=== PATIENT | female | born 1955 | race Caucasian/White ===

== ENCOUNTER 2017-10-20 16:12 | Emergency (ER) | payer MEDICARE, MEDICAID ==
--- NOTE | 2017-10-20 17:18 | RAD ---
INDICATION: Recent cardiac catheterization. Right groin pain COMPARISON: None TECHNIQUE: Doppler interrogation of the right inguinal region was performed. FINDINGS: There is no evidence of pseudoaneurysm. The common femoral artery and vein are both patent and the waveforms appear normal. There is a small hypoechoic focus in the inguinal region at the site of pain and tenderness which is probably a small hematoma. This measures 1.0 x 0.6 x 1.0 cm. IMPRESSION: NO EVIDENCE OF PSEUDOANEURYSM.
--- NOTE | 2017-10-20 18:01 | ED ---
Lower Extremity - HPI Summary HPI Summary: Patient presents to the ED with CC of R groin pain following an angiogram "around milo time" and states she has not been able to walk since that time. She is a resident of [place] and walks with a walker at baseline. Denies other pain or symptoms She denies any discoloration, numbness or tingling. The pain is discretely located over the R groin and does not radiate. She is currently on xarelto. Denies straining the area. While she states she has been unable to walk since the angiogram, she states she has been getting around via her walker (which is at her baseline.) Denies fevers, sweats and chills. - History of Current Complaint Chief Complaint: EDExtremityLower Stated Complaint: RT LEG PAIN Time Seen by Provider: 10/20/17 16:21 Hx Obtained From: Patient Onset of Pain: Immediate Onset/Duration: Weeks Severity Initially: Mild Severity Currently: Mild Pain Intensity: 8 Pain Scale Used: 0-10 Numeric Timing: Constant Location: Is Discrete @ - right groin Associated Signs And Symptoms: Negative: Swelling, Redness, Bruising, Weakness, Dizziness, Syncope, Abdominal Pain, Knee Pain Aggravating Factor(s): Standing, Ambulation Alleviating Factor(s): Rest Able to Bear Weight: No - Risk Factors Gout Risk Factors: Negative DVT Risk Factors: Negative Septic Arthritis Risk Factor: Negative - Allergies/Home Medications Allergies/Adverse Reactions: Allergies Allergy/AdvReac Type Severity Reaction Status Date / Time Baclofen Allergy Intermediate Headache Verified 09/21/17 14:02 Gabapentin [From Neurontin] Allergy Intermediate Hives Verified 09/21/17 14:02 Pregabalin [From Lyrica] Allergy Intermediate Hives Verified 09/21/17 14:02 Tramadol [From Ultram] Allergy Intermediate Hives Verified 09/21/17 14:02 Tapentadol [From Nucynta] AdvReac Diaphoresis Verified 09/21/17 14:02 PMH/Surg Hx/FS Hx/Imm Hx Previously Healthy: Yes Endocrine/Hematology History: Denies: Hx Diabetes Cardiovascular History: Denies: Hx Pacemaker/ICD, Other Cardiovascular Problems/Disorders Respiratory History: Denies: Other Respiratory Problems/Disorders GI History: Denies: Other GI Disorders Musculoskeletal History: Reports: Hx Back Problems, Other Musculoskeletal History - Chronic low back pain. Sensory History: Denies: Hx Contacts or Glasses, Hx Hearing Aid Opthamlomology History: Denies: Hx Contacts or Glasses Neurological History: Reports: Other Neuro Impairments/Disorders - CHRONIC LUMBAR PAIN Psychiatric History: Reports: Hx Depression - ON MEDS Denies: Hx Panic Disorder - Surgical History Surgery Procedure, Year, and Place: Laser Disc Surgery- LAMINECTOMY 1999;. Tubal Ligation;. Appendectomy; Hx Anesthesia Reactions: No - Immunization History Hx Pertussis Vaccination: No Immunizations Up to Date: Unable to Obtain/Confirm Infectious Disease History: No Infectious Disease History: Reports: History Other Infectious Disease - Encephalitis Denies: Traveled Outside the [place] in Last 30 Days - Social History Occupation: Unemployed Lives: [facility] Alcohol Use: None Hx Substance Use: No Substance Use Type: Reports: None Substance Use Comment - Amount & Last Used: fentanyl patch and clonazepam Smoking Status (MU): Never Smoked Tobacco Type: Cigarettes Review of Systems Constitutional: Negative Negative: Fever, Chills, Fatigue Eyes: Negative Cardiovascular: Negative Negative: Palpitations, Chest Pain Respiratory: Negative Negative: Shortness Of Breath, Cough Negative: Abdominal Pain, Vomiting, Diarrhea Positive: no symptoms reported, see HPI Positive: Arthralgia - right groin pain Skin: Negative Negative: Bruising Negative: Headache, Weakness, Paresthesia All Other Systems Reviewed And Are Negative: Yes Physical Exam Triage Information Reviewed: Yes Vital Signs On Initial Exam: Initial Vitals Temp Pulse Resp BP Pulse Ox 98 F 72 18 138/74 97 10/20/17 16:19 10/20/17 16:19 10/20/17 16:19 10/20/17 16:19 10/20/17 16:19 Vital Signs Reviewed: Yes Appearance: Positive: Well-Appearing, Well-Nourished Skin: Positive: Warm, Skin Color Reflects Adequate Perfusion Head/Face: Positive: Normal Head/Face Inspection Eyes: Positive: EOMI, KIMBER[place], Conjunctiva Clear Neck: Positive: Supple, Nontender Respiratory/Lung Sounds: Positive: Clear to Auscultation, Breath Sounds Present Cardiovascular: Positive: RRR, Pulses are Symmetrical in both Upper and Lower Extremities Musculoskeletal: Positive: Pain @ - right groin pain without discoloration Neurological: Positive: Speech Normal Psychiatric: Positive: Normal, Affect/Mood Appropriate - [place] Coma Scale Coma Scale Total: 15 Diagnostics - Vital Signs Vital Signs Temp Pulse Resp BP Pulse Ox 01/10/18 16:19 98 F 72 18 138/74 97 - Laboratory Lab Statement: Any lab studies that have been ordered have been reviewed, and results considered in the medical decision making process. Lower Extremity Course/Dx - Course Course Of Treatment: Patient presents to the ED with CC of R groin pain following an angiogram "around milo time" and states she has not been able to walk since that time. She is a resident of [place] and walks with a walker at baseline. Denies other pain or symptoms She denies any discoloration, numbness or tingling. The pain is discretely located over the R groin and does not radiate. She is currently on xarelto. Denies straining the area. While she states she has been unable to walk since the angiogram, she states she has been getting around via her walker (which is at her baseline.) Denies fevers, sweats and chills. During the course of treatment, VL pseudoaneurysm right groin obtained. FINDINGS: There is no evidence of pseudoaneurysm. The common femoral artery and vein are. both patent and the waveforms appear normal. There is a small hypoechoic focus in the. inguinal region at the site of pain and tenderness which is probably a small hematoma. This measures 1.0 x 0.6 x 1.0 cm. IMPRESSION: NO EVIDENCE OF PSEUDOANEURYSM. Patient is encouraged warmth to the area and to follow up with her PCP in 3 days. She agrees to this and [facility] called to transport back to [place]. She is not given or offered pain control in the ED d/t her chronic pain controlled with Fentanyl patch. - Diagnoses Differential Diagnosis/HQI/PQRI: Positive: DVT Provider Diagnoses: Hematoma Discharge - Discharge Plan Condition: Stable Disposition: HOME Patient Education Materials: Groin Pain (ED), Hematoma (ED) Referrals: Milo Pyle MD [Primary Care Provider] - Additional Instructions: As discussed, heat to the area will aid in healing and improve pain control Continue all your at home medications as prescribed If you develop any worsening symptoms, return to the ED immediately. I recommend you follow up with your PCP in 3 days.
[2017-10-20 18:07] VITALS: BP 132/74
== END 2017-10-20 18:06 | disposition home or self-care (01) ==
LOC: ED 16:12
DX: S30.1XXA Contusion of abdominal wall, initial encounter (principal); Z98.61 Coronary angioplasty status; R10.30 Lower abdominal pain, unspecified; X58.XXXA Exposure to other specified factors, initial encounter; Y92.9 Unspecified place or not applicable
CPT/HCPCS: 99283

== ENCOUNTER 2018-01-21 10:52 | Emergency (ER) | payer MEDICARE, MEDICAID ==
--- NOTE | 2018-01-21 12:44 | RAD ---
INDICATION: Left leg pain. COMPARISON: There are no prior studies available for comparison. TECHNIQUE: Multiple real-time, color flow and Doppler tracings of the left lower extremity were obtained. FINDINGS: The common femoral and profunda femoral veins demonstrate normal compressibility, augmentation with compression and phasic response with respiration. There is increased echogenicity throughout the femoral vein and within the popliteal vein which appears slightly small in caliber although are compressible most consistent with deep venous thrombosis possibly chronic. There is phasic flow on Doppler imaging. The posterior tibial and peroneal veins demonstrate normal compressibility and augmentation with compression. IMPRESSION: NONOCCLUSIVE DEEP VENOUS THROMBOSIS WITHIN THE FEMORAL AND POPLITEAL VEINS POSSIBLY CHRONIC.
[2018-01-21 13:16] LABS: ABS Basophils 0.1 10^3/ul (0-0.2); ABS Eosinophils 0 10^3/ul (0-0.6); ABS Lymphocytes 0.9 10^3/ul (1.0-4.8); ABS Monocytes 0.2 10^3/ul (0-0.8); ABS Neutrophils 7.1 10^3/ul (1.5-7.7); ABS Nucleated RBC 0 10^3/ul; Eosinophil % 0.1 % (0-6); Hematocrit 36 % (35-47); Hemoglobin 11.9 g/dl (12.0-16.0); Lymphocyte % 10.4 % (25-47); Mean Corpuscular HGB Conc 33 g/dl (31-36); Mean Corpuscular Hemoglobin 30 pg (27-31); Mean Corpuscular Volume 90 fL (80-97); Nucleated Red Blood Cells % 0.1; Platelet Count 297 10^3/ul (150-450); Red Blood Count 4.02 10^6/ul (4.0-5.4); Red Cell Distribution Width 14 % (10.5-15); White Blood Count 8.3 10^3/ul (3.5-10.8)
[2018-01-21 13:25] LABS: INR 0.85 (0.77-1.02)
--- NOTE | 2018-01-21 13:52 | ED ---
Lower Extremity - HPI Summary HPI Summary: 62-year-old female presents with increased swelling in her left leg. She states that she had this before she had a DVT. She states she is currently on Xarelto which was decreased 3 weeks ago to 10 mg. Since she said that decreased her dosage has noticed intermittent swelling. She denies any injury. She denies any fever or spreading redness. She states her pain is in left ankle and foot with walking. She denies any numbness or tingling. She denies any chest pain or shortness breath. She denies any recent travel. She denies any surgeries. She is unsure why she gets blood clots. She has been on xarleto for over 6 months. - History of Current Complaint Chief Complaint: EDExtremityLower Stated Complaint: LT LEG SWELLING Time Seen by Provider: 01/21/18 12:56 Pain Intensity: 8 - Allergies/Home Medications Allergies/Adverse Reactions: Allergies Allergy/AdvReac Type Severity Reaction Status Date / Time gabapentin Allergy Intermediate Hives Verified 01/21/18 10:59 pregabalin [From Lyrica] Allergy Intermediate Hives Verified 01/21/18 10:59 tapentadol [From Nucynta] Allergy Intermediate Diaphoresis Verified 01/21/18 10: 59 tramadol Allergy Intermediate Hives Verified 01/21/18 10:59 baclofen AdvReac Intermediate Headache Verified 01/21/18 10:59 PMH/Surg Hx/FS Hx/Imm Hx Endocrine/Hematology History: Reports: Hx Anticoagulant Therapy Denies: Hx Diabetes Cardiovascular History: Denies: Hx Pacemaker/ICD, Other Cardiovascular Problems/Disorders Respiratory History: Denies: Other Respiratory Problems/Disorders GI History: Denies: Other GI Disorders Musculoskeletal History: Reports: Hx Back Problems, Other Musculoskeletal History - Chronic low back pain. Sensory History: Denies: Hx Contacts or Glasses, Hx Hearing Aid Opthamlomology History: Denies: Hx Contacts or Glasses Neurological History: Reports: Other Neuro Impairments/Disorders - CHRONIC LUMBAR PAIN Psychiatric History: Reports: Hx Depression - ON MEDS Denies: Hx Panic Disorder - Surgical History Surgery Procedure, Year, and Place: Laser Disc Surgery- LAMINECTOMY 1999;. Tubal Ligation;. Appendectomy; Hx Anesthesia Reactions: No Infectious Disease History: No Infectious Disease History: Reports: History Other Infectious Disease - Encephalitis Denies: Traveled Outside the [place] in Last 30 Days - Family History Known Family History: Negative: Blood Disorder - Social History Alcohol Use: None Hx Substance Use: No Substance Use Type: Reports: None Substance Use Comment - Amount & Last Used: fentanyl patch and clonazepam Smoking Status (MU): Former Smoker Type: Cigarettes Review of Systems Negative: Fever Negative: Chest Pain Negative: Shortness Of Breath Positive: Edema - left leg All Other Systems Reviewed And Are Negative: Yes Physical Exam Triage Information Reviewed: Yes Vital Signs On Initial Exam: Initial Vitals Temp Pulse Resp BP Pulse Ox 98.3 F 75 16 129/73 96 01/21/18 11:01 01/21/18 11:01 01/21/18 11:01 01/21/18 11:01 01/21/18 11:01 Vital Signs Reviewed: Yes Appearance: Positive: Well-Appearing Skin: Positive: Warm, Dry Head/Face: Positive: Normal Head/Face Inspection Eyes: Positive: Normal, Conjunctiva Clear Respiratory/Lung Sounds: Positive: Clear to Auscultation, Breath Sounds Present Cardiovascular: Positive: Normal, RRR Musculoskeletal: Positive: Strength/ROM Intact - Left leg, Edema Left - foot and ankle, Other - Nontender left lower leg, good pulses, cap refill less than 2 seconds,. Negative: Fox Sign Left Neurological: Positive: Normal Psychiatric: Positive: Normal Diagnostics - Vital Signs Vital Signs Temp Pulse Resp BP Pulse Ox 01/21/18 11:01 98.3 F 75 16 129/73 96 - Laboratory Lab Results: Lab Results 01/21/18 01/21/18 01/21/18 Range/Units 13:03 13:03 13:03 WBC 8.3 (3.5-10.8) 10^3/ul RBC 4.02 (4.0-5.4) 10^6/ul Hgb 11.9 L (12.0-16.0) g/dl Hct 36 (35-47) % MCV 90 (80-97) fL MCH 30 (27-31) pg MCHC 33 (31-36) g/dl RDW 14 (10.5-15) % Plt Count 297 (150-450) 10^3/ul MPV 8.0 (7.4-10.4) um3 Neut % (Auto) 86.4 H (38-83) % Lymph % (Auto) 10.4 L (25-47) % [place] % (Auto) 2.4 (0-7) % Eos % (Auto) 0.1 (0-6) % Baso % (Auto) 0.7 (0-2) % Absolute Neuts (auto) 7.1 (1.5-7.7) 10^3/ul Absolute Lymphs (auto) 0.9 L (1.0-4.8) 10^3/ul Absolute Monos (auto) 0.2 (0-0.8) 10^3/ul Absolute Eos (auto) 0 (0-0.6) 10^3/ul Absolute Basos (auto) 0.1 (0-0.2) 10^3/ul Absolute Nucleated RBC 0 10^3/ul Nucleated RBC % 0.1 INR (Anticoag Therapy) 0.85 (0.77-1.02) APTT 29.9 (26.0-36.3) seconds Sodium 141 (139-145) mmol/L Potassium 4.1 (3.5-5.0) mmol/L Chloride 107 (101-111) mmol/L Carbon Dioxide 27 (22-32) mmol/L Anion Gap 7 (2-11) mmol/L BUN 8 (6-24) mg/dL Creatinine 0.75 (0.51-0.95) mg/dL Est GFR ( Amer) 100.4 (>60) Est GFR (Non-Af Amer) 78.0 (>60) BUN/Creatinine Ratio 10.7 (8-20) Glucose 124 H (70-100) mg/dL Calcium 8.6 (8.6-10.3) mg/dL Total Bilirubin 0.20 (0.2-1.0) mg/dL AST 24 (13-39) U/L ALT 17 (7-52) U/L Alkaline Phosphatase 109 H (34-104) U/L Total Protein 6.2 L (6.4-8.9) g/dL Albumin 3.8 (3.2-5.2) g/dL Globulin 2.4 (2-4) g/dL Albumin/Globulin Ratio 1.6 (1-3) Result Diagrams: 01/21/18 13:03 01/21/18 13:03 Lab Statement: Any lab studies that have been ordered have been reviewed, and results considered in the medical decision making process. - Ultrasound No standard instances Ultrasound Interpretation: Positive (See Comments) - IMPRESSION: NONOCCLUSIVE DEEP VENOUS THROMBOSIS WITHIN THE FEMORAL AND POPLITEAL VEINS POSSIBLY CHRONIC. Ultrasound Interpretation Completed By: Radiologist Lower Extremity Course/Dx - Course Course Of Treatment: 62-year-old female presents with increased swelling in her left leg. She states that she had this before she had a DVT. She states she is currently on Xarelto which was decreased 3 weeks ago to 10 mg. Since she said that decreased her dosage has noticed intermittent swelling. She denies any injury. She denies any fever or spreading redness. She states her pain is in left ankle and foot with walking. She denies any numbness or tingling. She denies any chest pain or shortness breath. She denies any recent travel. She denies any surgeries. She is unsure why she gets blood clots. She has been on xarleto for over 6 months. On exam has mild edema to left foot and ankle. Full range of motion of the ankle. Neurovascular intact. Ultrasound shows chronic DVT. Will increase dose of Xarelto should 20 mg as is therapeutic. We' ll have follow-up with primary for continued care. Patient understands and agrees plan - Diagnoses Differential Diagnosis/HQI/PQRI: Positive: DVT, Fracture (Closed), Sprain Provider Diagnoses: Deep venous thrombosis Discharge - Sign-Out/Discharge Documenting (check all that apply): Discharge - Discharge Plan Condition: Good Disposition: HOME Prescriptions: Rivaroxaban TAB(*) [Xarelto 20 mg] 20 mg PO DAILY #30 tab Patient Education Materials: Deep Vein Thrombosis (ED) Referrals: Milo Pyle MD [Primary Care Provider] - Additional Instructions: It appears your DVT is chronic Take xarelto 20mg once a day, will increase the dosage at this time Take with food Avoid Aspirin or ibuprofen, use Tylenol for pain Wear compression socks Elevate legs Follow up with primary care physician for continued care Return to ED if develop any chest pain or SOB or any new or worsening symptoms - Billing Disposition and Condition Condition: GOOD Disposition: HOME
[2018-01-21 14:16] VITALS: BP 143/68
== END 2018-01-21 14:16 | disposition home or self-care (01) ==
LOC: ED 10:52
DX: I82.512 Chronic embolism and thrombosis of left femoral vein (principal); I82.532 Chronic embolism and thrombosis of left popliteal vein; Z79.01 Long term (current) use of anticoagulants; Z87.891 Personal history of nicotine dependence
CPT/HCPCS: 36415; 80053; 85025; 85610; 85730; 99282

== ENCOUNTER 2019-04-23 08:36 | Emergency (ER) | payer MEDICARE, MEDICAID ==
[2019-04-23] MEDS ORDERED: Albuterol 2.5 MG/3 ML NEB.SOL* (0.083%) INH ONE (09:46)
[2019-04-23] MEDS ORDERED: NS 0.9% 1000 ML** 1,000 ML IV ONE (09:47)
[2019-04-23 10:22] LABS: ABS Lymphocytes 0.7 10^3/ul (1.0-4.8); ABS Monocytes 0.3 10^3/ul (0-0.8); ABS Neutrophils 5.2 10^3/ul (1.5-7.7); Eosinophil % 0.1 %; Hematocrit 37 % (35-47); Hemoglobin 12.3 g/dL (12.0-16.0); Mean Corpuscular HGB Conc 34 g/dL (31-36); Mean Corpuscular Hemoglobin 31 pg (27-31); Mean Corpuscular Volume 91 fL (80-97); Mean Platelet Volume 7.8 fL (7.4-10.4); Platelet Count 224 10^3/uL (150-450); Red Blood Count 4.05 10^6 /uL (3.70-4.87); Red Cell Distribution Width 13 % (10-15); White Blood Count 6.2 10^3/uL (3.5-10.8)
[2019-04-23 10:39] LABS: Albumin/Globulin Ratio 1.5 (1-3); BUN/Creatinine Ratio 10.1 (8-20); Calcium 8.5 mg/dL (8.6-10.3); EGFR African American 88.7 (>60); EGFR Non-African American 73.3 (>60); Globulin 2.6 g/dL (2-4); Potassium 3.9 mmol/L (3.5-5.0); Total Bilirubin 0.3 mg/dL (0.2-1.0); Total Protein 6.6 g/dL (6.4-8.9)
[2019-04-23] MEDS ORDERED: Acetaminophen TAB* 325 MG PO ONE (11:06)
--- NOTE | 2019-04-23 11:32 | ED ---
HPI Cardiac - HPI Summary HPI Summary: Coughing past few days - wiped out- reduced fluid intake d/t nausea/fatigue/GARCIAS. Cough is making chest hurt. Fever (low grade). Sinus congestion w/ PND. Denies vomiting, diarrhea, chest pain, swelling. Lives in [place] (asst'd living) and has been around many people with bronchitis. Has not tried anything yet for relief other than tea this morning which helped break up sputum. - History of Current Complaint Chief Complaint: EDUpperRespComplaint Stated Complaint: COUGHING/ILLNESS PER EMS Time Seen by Provider: 04/23/19 08:44 Hx Obtained From: Patient Pain Intensity: 5 - Allergy/Home Medications Allergies/Adverse Reactions: Allergies Allergy/AdvReac Type Severity Reaction Status Date / Time gabapentin Allergy Intermediate Hives Verified 04/23/19 08:56 pregabalin [From Lyrica] Allergy Intermediate Hives Verified 04/23/19 08:56 tapentadol [From Nucynta] Allergy Intermediate Diaphoresis Verified 04/23/19 08: 56 tramadol Allergy Intermediate Hives Verified 04/23/19 08:56 baclofen AdvReac Intermediate Headache Verified 04/23/19 08:56 PMH/Surg Hx/FS Hx/Imm Hx Previously Healthy: Yes Endocrine/Hematology History: Reports: Hx Anticoagulant Therapy Denies: Hx Diabetes Cardiovascular History: Denies: Hx Hypertension, Hx Pacemaker/ICD, Other Cardiovascular Problems/ Disorders Respiratory History: Denies: Hx Asthma, Hx Chronic Obstructive Pulmonary Disease (COPD), Hx Pneumonia, Other Respiratory Problems/Disorders GI History: Reports: Hx Gastroesophageal Reflux Disease - TAKES ZANTEC PRN Denies: Other GI Disorders History: Denies: Hx Renal Disease Musculoskeletal History: Reports: Hx Back Problems, Other Musculoskeletal History - Chronic low back pain. L4-5 Sensory History: Denies: Hx Contacts or Glasses, Hx Hearing Aid Opthamlomology History: Denies: Hx Contacts or Glasses Neurological History: Reports: Other Neuro Impairments/Disorders - CHRONIC LUMBAR PAIN/ BRAIN ANEURYSM - WATCHED W/ MRAs [id number] Denies: Hx Seizures - AUTOIMMUNE ENCEPHALITIS 2017 ON ANTI-SEIZURE MEDICATION Psychiatric History: Reports: Hx Anxiety, Hx Depression - ON MEDS Denies: Hx Panic Disorder - Surgical History Surgery Procedure, Year, and Place: APPENDIX. LASER DISC FOR BACK. TUBAL LIGATION Hx Anesthesia Reactions: No Infectious Disease History: No Infectious Disease History: Reports: History Other Infectious Disease - Encephalitis Denies: Traveled Outside the [place] in Last 30 Days - Family History Known Family History: Negative: Blood Disorder - Social History Occupation: Retired Lives: Assisted Living Alcohol Use: None Hx Substance Use: No Substance Use Type: Reports: None Substance Use Comment - Amount & Last Used: fentanyl patch and clonazepam Hx Tobacco Use: Yes - not currently smoking Smoking Status (MU): Former Smoker Type: Cigarettes Have You Smoked in the Last Year: No Review of Systems Positive: Fever, Fatigue. Negative: Chills Eyes: Negative Positive: Sore Throat, Nasal Discharge. Negative: Epistaxis, Dental Pain, Ear Ache Cardiovascular: Negative Positive: Cough. Negative: Shortness Of Breath Gastrointestinal: Negative Positive: no symptoms reported Musculoskeletal: Negative Skin: Negative Positive: Headache. Negative: Weakness, Paresthesia, Numbness, Syncope, Slurred Speech Psychological: Normal All Other Systems Reviewed And Are Negative: Yes Physical Exam Vital Signs On Initial Exam: Initial Vitals Temp Pulse Resp BP Pulse Ox 100.4 F 82 22 151/83 95 04/23/19 08:52 04/23/19 08:52 04/23/19 08:52 04/23/19 08:52 04/23/19 08:52 Appearance: Positive: No Pain Distress, Ill-Appearing, Thin Skin: Positive: Warm, Skin Color Reflects Adequate Perfusion, Dry Head/Face: Positive: Normal Head/Face Inspection Eyes: Positive: Normal, EOMI, Conjunctiva Clear ENT: Positive: Hearing grossly normal, Pharynx normal - cobblestoning, Nasal congestion, TMs normal, Uvula midline. Negative: Nasal drainage, Tonsillar swelling, Tonsillar exudate, Trismus, Muffled voice, Hoarse voice Neck: Positive: Supple, Nontender, No Lymphadenopathy Respiratory/Lung Sounds: Positive: Clear to Auscultation, Breath Sounds Present , Other - coughs easily w/ deep breathes. Negative: Rales, Rhonchi, Wheezes Cardiovascular: Positive: Normal, Pulses are Symmetrical in both Upper and Lower Extremities, S1, S2. Negative: Murmur, Rub, Leg Edema Left, Leg Edema Right Abdomen Description: Positive: Nontender, Soft Bowel Sounds: Positive: Present Musculoskeletal: Positive: Normal, Strength/ROM Intact Neurological: Positive: Normal, Sensory/Motor Intact, Alert, Oriented to Person Place, Time, CN Intact II-III Psychiatric: Positive: Anxious - [place] Coma Scale Best Eye Response: 4 - Spontaneous Best Motor Response: 6 - Obeys Commands Best Verbal Response: 5 - Oriented Coma Scale Total: 15 Diagnostics - Vital Signs Vital Signs Temp Pulse Resp BP Pulse Ox 04/23/19 10:10 74 16 96 04/23/19 10:07 77 18 177/75 95 04/23/19 10:00 73 18 94 04/23/19 09:41 80 16 177/75 95 04/23/19 09:03 76 13 93 04/23/19 08:52 100.4 F 82 27 151/83 95 - Laboratory Lab Results: Lab Results 04/23/19 04/23/19 04/23/19 Range/Units 09:56 09:56 09:56 WBC 6.2 (3.5-10.8) 10^3/uL RBC 4.05 (3.70-4.87) 10^6 /uL Hgb 12.3 (12.0-16.0) g/dL Hct 37 (35-47) % MCV 91 (80-97) fL MCH 31 (27-31) pg MCHC 34 (31-36) g/dL RDW 13 (10-15) % Plt Count 224 (150-450) 10^3/uL MPV 7.8 (7.4-10.4) fL Neut % (Auto) 83.1 % Lymph % (Auto) 11.0 % [place] % (Auto) 5.5 % Eos % (Auto) 0.1 % Baso % (Auto) 0.3 % Absolute Neuts (auto) 5.2 (1.5-7.7) 10^3/ul Absolute Lymphs (auto) 0.7 L (1.0-4.8) 10^3/ul Absolute Monos (auto) 0.3 (0-0.8) 10^3/ul Absolute Eos (auto) 0.0 (0-0.6) 10^3/ul Absolute Basos (auto) 0.0 (0-0.2) 10^3/ul Absolute Nucleated RBC 0.0 10^3/ul Nucleated RBC % 0.0 Sodium 136 (135-145) mmol/L Potassium 3.9 (3.5-5.0) mmol/L Chloride 104 (101-111) mmol/L Carbon Dioxide 25 (22-32) mmol/L Anion Gap 7 (2-11) mmol/L BUN 8 (6-24) mg/dL Creatinine 0.79 (0.51-0.95) mg/dL Est GFR ( Amer) 88.7 (>60) Est GFR (Non-Af Amer) 73.3 (>60) BUN/Creatinine Ratio 10.1 (8-20) Glucose 108 H (70-100) mg/dL Lactic Acid 0.7 (0.5-2.0) mmol/L Calcium 8.5 L (8.6-10.3) mg/dL Magnesium 2.0 (1.9-2.7) mg/dL Total Bilirubin 0.30 (0.2-1.0) mg/dL AST 22 (13-39) U/L ALT 15 (7-52) U/L Alkaline Phosphatase 99 (34-104) U/L C-Reactive Protein 5.00 (<8.01) mg/L Total Protein 6.6 (6.4-8.9) g/dL Albumin 4.0 (3.2-5.2) g/dL Globulin 2.6 (2-4) g/dL Albumin/Globulin Ratio 1.5 (1-3) Result Diagrams: 04/23/19 09:56 04/23/19 09:56 Lab Statement: Any lab studies that have been ordered have been reviewed, and results considered in the medical decision making process. Re-Evaluation - Re-Evaluation First Eval Change: Improved - GARCIAS and energy improved s/p IVF; cough/chest tightness improved s/p duoneb Disposition - Course Course Of Treatment: CXR: no acute findings - Diagnoses Provider Diagnoses: Bronchitis Discharge - Sign-Out/Discharge Documenting (check all that apply): Patient Departure Patient Received Moderate/Deep Sedation with Procedure: No - Discharge Plan Condition: Stable Disposition: HOME Prescriptions: Albuterol HFA INHALER* [Ventolin HFA Inhaler*] 2 puff INH Q6H PRN #1 mdi PRN Reason: Cough Patient Education Materials: Acute Bronchitis (ED) Referrals: Milo Pyle MD [Primary Care Provider] - Additional Instructions: Albuterol Inhaler: 2 puffs every 6 hours as needed for coughing Rinse mouth after use Once cough and chest tightness resolve, you may discontinue use of inhaler You may also try the following for relief of symptoms: Nasal wash (netti pot or saline spray) & salt water throat gargles 2 x day Drink you body weight in ounces of water every day Sleep 8+ hours per night Avoid Dairy and sugar Hot herbal/decaf tea with lemon & honey Chicken broth (preferably organic, free range chicken) Try warm shower to loosen cough Use cough drops/throat lozenges Try a facial steam with or without eucalyptus essential oil or Oswaldo's Vapor rub for congestion Avoid smoke, candles, perfumes, colognes, scented soaps/detergents , air fresheners and cleaning chemicals as these can cause airway irritation and trigger coughing Start Vitamin D3 5,000iu and Vitamin C 1,000mg every day during illness Follow-up with PCP this week - call Wednesday to schedule an appointment *If worse, return to ED - Billing Disposition and Condition Condition: STABLE Disposition: Home
[2019-04-23] MEDS ORDERED: Albuterol HFA INHALER* 8 gm MDI INH PRN (11:35)
[2019-04-23 15:04] VITALS: BP 134/76
== END 2019-04-23 15:01 | disposition home or self-care (01) ==
LOC: ED 08:36
DX: J40 Bronchitis, not specified as acute or chronic (principal); K21.9 Gastro-esophageal reflux disease without esophagitis; G89.29 Other chronic pain; M54.5 Low back pain; I67.1 Cerebral aneurysm, nonruptured; Z79.01 Long term (current) use of anticoagulants; F41.9 Anxiety disorder, unspecified; F32.9 Major depressive disorder, single episode, unspecified; Z88.5 Allergy status to narcotic agent; Z88.8 Allergy status to other drugs, medicaments and biological substances; Z87.891 Personal history of nicotine dependence
CPT/HCPCS: 36415; 71046; 80053; 83605; 83735; 85025; 86140; 87040; 96360; 96361; 99283; A9270-GY

== ENCOUNTER 2020-08-29 11:36 | Inpatient (IN) ==
[~2020-08-29 11:36] MED LIST: Buffered Lidocaine 1% SYRIN 1 ml INTRADERM ONE; Lactated Ringers 1000 ml BAG 1,000 ML IV SCH
[2020-08-29] MEDS ORDERED: ceFAZolin 2 GM PREMIX 2 GM/50 ML BAG ONE (12:23)
[2020-08-29] MEDS ORDERED: Buffered Lidocaine 1% SYRIN 1 ml INTRADERM ONE (12:23)
[2020-08-29 13:14] LABS: INR 1.03 (0.82-1.09)
[2020-08-29] MEDS ORDERED: Dexmedetomidine 200 mcg/2 ml 2 ml VIAL (200 mcg) ONE (13:54)
[2020-08-29] MEDS ORDERED: Midazolam 2 mg/2 ml VIAL 1 mg/ml 2 ml VIAL (2 mg) ONE (13:54)
[2020-08-29] MEDS ORDERED: Lidocaine 2% PF 5 ML VIAL ONE (13:54)
[2020-08-29] MEDS ORDERED: ROPIVACAINE 5 MG/ML 30 ML BTL (0.5%) ONE (13:54)
[2020-08-29] MEDS ORDERED: Bupivacaine 0.5% SDV PF 30ML VIAL ONE (14:24)
[2020-08-29] MEDS ORDERED: Propofol 10 mg/ml 100 ML BTL 100 ML ONE (14:26)
[2020-08-29] MEDS ORDERED: fentaNYL 100 mcg/2 ml 50 MCG/ML VIAL ONE (14:38)
[2020-08-29] MEDS ORDERED: Morphine 2 MG/ML SYRINGE IV PRN (15:43)
[2020-08-29] MEDS ORDERED: Ondansetron 4 mg VIAL 2 MG/ML 2 ml VIAL IV PRN ×2 (15:43→17:53)
[2020-08-29] MEDS ORDERED: diPHENhydraMINE 25 mg TAB PO PRN (15:43)
[2020-08-29] MEDS ORDERED: Magnesium Hydroxide LIQ 30 ML UDC PO PRN (15:43)
[2020-08-29] MEDS ORDERED: Lactulose 30 ml UDC PO PRN (15:43)
[2020-08-29] MEDS ORDERED: diPHENhydraMINE IV 50 MG/ML 1 ml VIAL (BENADRYL) IV PRN (15:43)
[2020-08-29] MEDS ORDERED: Ondansetron ODT 4 mg TAB 4 MG TAB PO PRN (15:43)
[2020-08-29] MEDS ORDERED: Ondansetron 4 mg VIAL 2 MG/ML 2 ml VIAL ONE (17:05)
[2020-08-29] MEDS ORDERED: EPHEDrine (Pressors) 50 MG/ML VIAL ONE (17:10)
[2020-08-29] MEDS ORDERED: Naloxone 0.4 mg VIAL 0.4 mg/ml 1 ml VIAL IV PRN (17:53)
[2020-08-29] MEDS ORDERED: fentaNYL 100 mcg/2 ml 50 MCG/ML VIAL IV PRN (17:53)
[2020-08-29] MEDS ORDERED: HYDROmorphone 1 MG/1 ML SYRINGE IV PRN (17:53)
[2020-08-29] MEDS: Lactated Ringers 1000 ml BAG 1,000 ML IV SCH (18:26)
[2020-08-29] MEDS ORDERED: fentaNYL PATCH 75 MCG/HR 1 PATCH TRANSDERM SCH ×2 (20:00→23:30)
[2020-08-29] MEDS: Magnesium Hydroxide LIQ 30 ML UDC PO SCH (20:14)
[2020-08-29] MEDS: ceFAZolin 1 GM ADVAN 1 GM in NS 0.9% 50 ML 50 ML IVPB SCH (23:45)
[2020-08-29] MEDS: oxyCODONE/Acetamin 5/325 mg TAB PO PRN (23:45)
[2020-08-30] MEDS: Lactated Ringers 1000 ml BAG 1,000 ML IV SCH (04:49)
[2020-08-30] MEDS: ceFAZolin 1 GM ADVAN 1 GM in NS 0.9% 50 ML 50 ML IVPB SCH ×2 (06:15→13:02)
[2020-08-30 06:18] LABS: Hematocrit 29 % (35-47); Hemoglobin 9.6 g/dL (12.0-16.0); Mean Platelet Volume 8.5 fL (7.4-10.4); Platelet Count 222 10^3/uL (150-450)
[2020-08-30 06:36] LABS: BUN/Creatinine Ratio 11.4 (8-20); Calcium 8.2 mg/dL (8.6-10.3); EGFR African American 101.6 (>60); Potassium 3.9 mmol/L (3.5-5.0)
[2020-08-30] MEDS ORDERED: fentaNYL Patch Check Q Shift NOTE FOLLOW UP SCH (07:00)
[2020-08-30] MEDS ORDERED: Vitamin THERAPEUTIC TAB PO SCH (09:00)
[2020-08-30] MEDS: oxyCODONE/Acetamin 5/325 mg TAB PO PRN ×2 (09:38→12:56)
[2020-08-30] MEDS: Magnesium Hydroxide LIQ 30 ML UDC PO SCH (09:42)
[2020-08-30 11:46] VITALS: BP 128/64
== END 2020-08-30 14:29 | disposition home or self-care (01) | DRG 470 ==
LOC: AA 11:36 → SSU 15:43
PROVIDERS: ADMIT Orthopaedic Surgery Adult Reconstructive Orthopaedic Surgery; ATTEND Orthopaedic Surgery Adult Reconstructive Orthopaedic Surgery

== ENCOUNTER 2023-09-16 08:26 | Observation (INO) ==
[~2023-09-16 08:26] MED LIST changes: +Naloxone 0.4 mg VIAL 0.4 mg/ml 1 ml VIAL IV PRN; +Ondansetron 4 mg VIAL 2 MG/ML 2 ml VIAL IV PRN
[2023-09-16] MEDS ORDERED: Tranexamic Acid 1 GM/100ML BAG 2,000 MG/200 ML BAG IV ONE (08:53)
[2023-09-16] MEDS ORDERED: ceFAZolin 2 GM in NS PREMIX 2 GM/100 ML BAG IVPB ONE (08:53)
[2023-09-16 09:20] LABS: Rapid COVID-19 Molecular Undetected (Undetected)
[2023-09-16] MEDS ORDERED: Propofol 10 MG/ML 20 ML BTL ONE ×3 (10:35→13:49)
[2023-09-16] MEDS ORDERED: fentaNYL 100 mcg/2 ml 50 MCG/ML VIAL ONE ×3 (10:35→16:29)
[2023-09-16] MEDS ORDERED: ROPIVACAINE 5 MG/ML 30 ML BTL (0.5%) ONE (11:14)
[2023-09-16] MEDS ORDERED: Midazolam 2 mg/2 ml VIAL 1 mg/ml 2 ml VIAL (2 mg) ONE (11:29)
[2023-09-16] MEDS ORDERED: Phenylephrine 40 mcg/mL 10mL (400mcg) SYRINGE ONE (13:00)
[2023-09-16] MEDS ORDERED: Morphine 2 MG/ML SYRINGE IV PRN (14:31)
[2023-09-16] MEDS ORDERED: Ondansetron ODT 4 mg TAB 4 MG TAB PO PRN (14:31)
[2023-09-16] MEDS ORDERED: Lactulose 30 ml UDC PO PRN (14:31)
[2023-09-16] MEDS ORDERED: Ondansetron 4 mg VIAL 2 MG/ML 2 ml VIAL IV PRN (14:31)
[2023-09-16] MEDS ORDERED: Magnesium Hydroxide LIQ 30 ML UDC PO PRN (14:31)
[2023-09-16] MEDS: fentaNYL 100 mcg/2 ml 50 MCG/ML VIAL IV PRN ×5 (14:44→16:30)
[2023-09-16] MEDS ORDERED: hydrALAZINE 20 mg/ml 1 ML Vial IV IV SLOW PU ONE ×2 (16:12)
[2023-09-16] MEDS ORDERED: hydrALAZINE 20 mg/ml 1 ML Vial IV ONE (16:34)
[2023-09-16] MEDS ORDERED: Labetalol IV 5 MG/ML 20 ml VIAL IV PUSH PRN (16:54)
[2023-09-16] MEDS ORDERED: Ondansetron 4 mg VIAL 2 MG/ML 2 ml VIAL ONE (17:05)
[2023-09-16] MEDS ORDERED: Morphine 2 MG/ML SYRINGE ONE (18:03)
[2023-09-16] MEDS: Lactated Ringers 1000 ml BAG 1,000 ML IV SCH (18:18)
[2023-09-16 19:17] LABS: Hematocrit 33.7 % (35-45); Hemoglobin 11.2 g/dL (11.5-14.3); Mean Corpuscular Hemoglobin 29.7 pg (27-33); Mean Corpuscular Hgb Conc 33.2 g/dL (31-36); Mean Corpuscular Volume 89.4 fL (80-97); Mean Platelet Volume 7.9 fL (7.5-11.2); Platelet Count 340 10^3/uL (150-450); Red Blood Count 3.77 10^6/uL (3.63-4.92); Red Cell Distribution Width 14.1 % (12-17); White Blood Count 12.4 10^3/uL (3.8-11.8)
[2023-09-16] MEDS: ceFAZolin 1 GM in Dextrose 1 GM/50 ML BAG IV SCH (20:47)
[2023-09-16] MEDS: Heparin 5000 UNITS/ML 1 mL VIAL SUBCUT SCH (20:47)
[2023-09-16] MEDS: Magnesium Hydroxide LIQ 30 ML UDC PO SCH (20:51)
[2023-09-17] MEDS: Lactated Ringers 1000 ml BAG 1,000 ML IV SCH (04:22)
[2023-09-17] MEDS: ceFAZolin 1 GM in Dextrose 1 GM/50 ML BAG IV SCH ×2 (04:29→12:20)
[2023-09-17] MEDS: Heparin 5000 UNITS/ML 1 mL VIAL SUBCUT SCH (06:37)
[2023-09-17 08:13] LABS: Calcium 8.6 mg/dL (8.6-10.3); Creatinine, Serum 0.61 mg/dL (0.51-0.95); Potassium 3.1 mmol/L (3.5-5.0); eGFR CKD-EPI 97.3 (>60)
[2023-09-17] MEDS ORDERED: Vitamin THERAPEUTIC TAB PO SCH (09:00)
[2023-09-17 10:47] VITALS: BP 137/59
[2023-09-17] MEDS: Magnesium Hydroxide LIQ 30 ML UDC PO SCH (11:10)
== END 2023-09-17 13:45 | disposition home or self-care (01) ==
LOC: SSU 08:26 → OR 08:26
PROVIDERS: ADMIT Orthopaedic Surgery Adult Reconstructive Orthopaedic Surgery; ATTEND Orthopaedic Surgery Adult Reconstructive Orthopaedic Surgery